=== PATIENT | male | born 1980 | race Two or more races ===

== ENCOUNTER 2018-09-10 12:33 | Emergency (ER) | payer OTHER ==
[2018-09-10] MEDS ORDERED: Aluminum Hydroxide/Magnesium Hydroxide/Simethicone Susp 30 ML Cup ONE (13:30)
[2018-09-10] MEDS ORDERED: Aluminum Hydroxide/Magnesium Hydroxide/Simethicone Susp 30 ML Cup PO ONE (13:32)
--- NOTE | 2018-09-10 18:19 | EDM.PDOC ---
ED HPI GENERAL MEDICAL PROBLEM - General Chief Complaint: General Stated Complaint: CHEST PAIN Time Seen by Provider: 09/10/18 13:00 Source of Information: Reports: Patient History Limitations: Reports: No Limitations - History of Present Illness INITIAL COMMENTS - FREE TEXT/NARRATIVE: This is a 37yo M with feeling of back pain and some neck pain. He notes that he also felt tingling of the hands and an unwell feeling. He has had this feeling in the past. He recalls that he did not eat breakfast today and then ate only an orange and his symptoms started after that. He had a meeting and started feeling cold and sick. He notes that the last time this occurred he also did not eat and was exercising. He has not been diagnosed with GERD in the past. He has no cardiac history. He only takes metformin. He works at [employer] and is from [place], [place]. Onset: Sudden Duration: Minutes: Location: Reports: Abdomen, Back Quality: Reports: Ache Improves with: Reports: None Worsens with: Reports: None - Related Data Allergies Allergy/AdvReac Type Severity Reaction Status Date / Time No Known Allergies Allergy Verified 09/10/18 13:03 Home Meds: Home Meds metFORMIN [Glucophage XR] 500 mg PO BIDMEALS 09/10/18 [History] ED ROS GENERAL - Review of Systems Review Of Systems: ROS reveals no pertinent complaints other than HPI. ED EXAM, GENERAL - Physical Exam Exam: See Below Exam Limited By: No Limitations General Appearance: Alert, WD/WN, No Apparent Distress, Anxious Eye Exam: Bilateral Eye: EOMI, PERRL Ears: Normal External Exam Ear Exam: Bilateral Ear: TM normal Nose: Normal Inspection Throat/Mouth: Normal Inspection Head: Atraumatic, Normocephalic Neck: Normal Inspection, Other (muscular tenderness of the base of neck and right shoulder area) Respiratory/Chest: No Respiratory Distress, Lungs Clear, Normal Breath Sounds Cardiovascular: Normal Peripheral Pulses, Regular Rate, Rhythm, No Edema Peripheral Pulses: 2+: Dorsalis Pedis (L), Dorsalis Pedis (R) GI/Abdominal: Normal Bowel Sounds, Soft, Non-Tender Back Exam: Normal Inspection Extremities: Normal Inspection Neurological: Alert, Oriented, CN II-XII Intact Course - Vital Signs Last Recorded V/S: Last Vital Signs Temp 36.9 C 09/10/18 13:30 Pulse 97 09/10/18 13:30 Resp 18 09/10/18 13:30 BP 133/91 H 09/10/18 13:30 Pulse Ox 99 09/10/18 13:30 - Orders/Labs/Meds Orders: Active Orders 24 hr Category Date Time Status EKG Documentation Completion [RC] ASDIRECTED Care 09/10/18 12:51 Active Labs: Laboratory Tests 09/10/18 09/10/18 Range/Units 12:55 12:55 WBC 7.7 (4.0-11.0) K/uL RBC 5.05 (4.50-6.50) M/uL Hgb 14.3 (13.0-18.0) g/dL Hct 40.9 (40.0-54.0) % MCV 81 (76-96) fL MCH 28.3 (27.0-32.0) pg MCHC 35.0 (31.0-35.0) g/dL RDW 13.4 (11.0-16.0) % Plt Count 235 (150-400) K/uL MPV 10.4 H (6.0-10.0) fL Neut % (Auto) 52.5 (45.0-70.0) % Lymph % (Auto) 40.5 H (20.0-40.0) % Bonner % (Auto) 5.8 (3.0-10.0) % Eos % (Auto) 0.9 L (1.0-5.0) % Baso % (Auto) 0.3 (0.0-0.5) % Neut # (Auto) 4.02 (2.00-7.50) K/uL Lymph # (Auto) 3.10 (1.50-4.00) K/uL Bonner # (Auto) 0.44 (0.20-0.80) K/uL Eos # (Auto) 0.07 (0.04-0.40) K/uL Baso # (Auto) 0.02 (0.02-0.10) K/uL Sodium 142 (136-145) mmol/L Potassium 3.6 (3.5-5.1) mmol/L Chloride 101 (98-107) mmol/L Carbon Dioxide 26.1 (21.0-32.0) mmol/L Anion Gap 18.5 H (5.0-15.0) mmol/L BUN 9 (8-26) mg/dL Creatinine 0.90 (0.70-1.30) mg/dL Est Cr Clr Drug Dosing TNP Estimated GFR (MDRD) > 60 (>60) MLS/MIN BUN/Creatinine Ratio 10.0 (6-25) Glucose 198 H (74-100) mg/dL Calcium 8.9 (8.5-10.1) mg/dL Troponin I < 0.017 (0.000-0.060) ng/mL Meds: Medications Discontinued Medications Generic Name Dose Route Start Last Admin Trade Name Freq PRN Reason Stop Dose Admin Al Hydroxide/Mg Hydroxide 30 ml 09/10/18 13:32 09/10/18 13:32 Mag-Al Plus PO 09/10/18 13:33 30 ml ONETIME ONE Administration Al Hydroxide/Mg Hydroxide Confirm 09/10/18 13:30 09/10/18 13:37 Mag-Al Plus Administered 09/10/18 13:31 Not Given Dose 30 ml .ROUTE .STK-MED ONE - Re-Assessments/Exams Free Text/Narrative Re-Assessment/Exam: Maalox 10mL given and patient had marked improvement thereafter. Departure - Departure Time of Disposition: 14:00 Disposition: Home, Self-Care 01 Condition: Good Clinical Impression: GERD (gastroesophageal reflux disease) Qualifiers: Esophagitis presence: esophagitis presence not specified Qualified Code(s): K21.9 - Gastro-esophageal reflux disease without esophagitis - Discharge Information Instructions: Aluminum Hydroxide; Magnesium Hydroxide; Simethicone oral suspension, Gastroesophageal Reflux Disease, Adult Referrals: PCP,None [Primary Care Provider] - Forms: ED Department Discharge Additional Instructions: Follow up with primary provider at home. Return to ER for clinic if symprtoms return. Take Maalox over the counter as instructed - Problem List & Annotations (1) GERD (gastroesophageal reflux disease) SNOMED Code(s): 308164314 Code(s): K21.9 - GASTRO-ESOPHAGEAL REFLUX DISEASE WITHOUT ESOPHAGITIS Status: Resolved Priority: Medium Qualifiers: Esophagitis presence: esophagitis presence not specified Qualified Code(s) : K21.9 - Gastro-esophageal reflux disease without esophagitis - Problem List Review Problem List Initiated/Reviewed/Updated: Yes - My Orders Last 24 Hours: My Active Orders 09/10/18 12:51 EKG Documentation Completion [RC] ASDIRECTED - Assessment/Plan Last 24 Hours: My Active Orders 09/10/18 12:51 EKG Documentation Completion [RC] ASDIRECTED Plan: Counseled on supportive care and conservative management. Discussed f/u with PCP in the next few days. Patient to f/u if symptoms worsen. Discussed use of Maalox and other antacids. Start trial and use and f/u as directed.
== END 2018-09-10 13:46 | disposition home or self-care (01) ==
LOC: LB.ED 12:33
DX: K21.9 Gastro-esophageal reflux disease without esophagitis (principal)
CPT/HCPCS: 36415; 80048; 84484; 85025; 93005; 99283-25; A9270-GY